=== PATIENT | female | born 1965 | race Caucasian/White ===

== ENCOUNTER → 2023-05-01 14:52 | Outpatient (REF) | payer BC, SELFPAY | LOC: HWWDC 14:52 | PROVIDERS: ATTENDING PHYSICIAN Family Medicine; REFERRING PHYSICIAN Obstetrics & Gynecology | DX: Z12.31 Encounter for screening mammogram for malignant neoplasm of breast (principal) | CPT/HCPCS: 77063; 77067 ==

== ENCOUNTER → 2024-05-09 13:00 | Outpatient (REF) | payer OTHER, SELFPAY | LOC: HWWDC 13:00 | PROVIDERS: ATTENDING PHYSICIAN Family Medicine; REFERRING PHYSICIAN Obstetrics & Gynecology | DX: Z12.31 Encounter for screening mammogram for malignant neoplasm of breast (principal) | CPT/HCPCS: 77063; 77067 ==

== ENCOUNTER → 2024-06-26 18:00 | Outpatient (REF) | payer OTHER, SELFPAY | LOC: MRI 3T 18:00 | PROVIDERS: ATTENDING PHYSICIAN Family Medicine | DX: M54.9 Dorsalgia, unspecified (principal) | CPT/HCPCS: 72148 ==

== ENCOUNTER → 2024-07-30 16:08 | Outpatient (REF) | payer OTHER, SELFPAY | LOC: RAD 16:08 | PROVIDERS: ATTENDING PHYSICIAN Physician Assistant; FAMILY PHYSICIAN Family Medicine | DX: L40.9 Psoriasis, unspecified (principal); M54.59 Other low back pain; M79.641 Pain in right hand; M79.642 Pain in left hand; M79.644 Pain in right finger(s); R76.8 Other specified abnormal immunological findings in serum | CPT/HCPCS: 72200; 73130 ==